=== PATIENT | female | born 1970 | race Caucasian/White ===

== ENCOUNTER 2016-11-16 21:36 | Emergency (ER) | payer OTHER ==
[~2016-11-16 21:36] MED LIST: PEPCID40 MG PO; PERCOCET 325 MG1 TA2 PO
[2016-11-16 22:31] LABS: ABSOLUTE BASOPHIL COUNT 0 /CUMM (0.0-0.2); ABSOLUTE EOSINOPHIL COUNT 0.1 /CUMM (0.0-0.7); ABSOLUTE GRANULOCYTE CT 4.2 /CUMM (1.4-6.5); ABSOLUTE MONOCYTE COUNT 0.4 /CUMM (0.10-0.60); BASOPHIL % 0.5 % (0.0-2.0); EOSINOPHIL % 1.4 % (0-5); GRANULOCYTE % 62.5 % (42.2-75.2); HEMATOCRIT 37.1 % (37-47); MEAN CORPUSCULAR HGB 32.2 PG (27.0-31.0); MEAN CORPUSCULAR HGB CONC 33.6 G/DL (33.0-37.0); MEAN PLATELET VOLUME 7.8 FL (7.4-10.4); PLATELET COUNT 225 /CUMM (130-400); RBC DISTRIBUTION WIDTH 12.7 % (11.5-14.5); RED BLOOD CELL CT 3.87 /CUMM (4.20-5.40); WHITE BLOOD CELL COUNT 6.7 /CUMM (4.8-10.8)
--- NOTE | 2016-11-16 22:32 | ED GI/GU/ABDOMINAL COMPLAINT ---
History of Present Illness General Chief Complaint: Female Urogenital Problems Stated Complaint: CRAMPING,SHARP PAIN X 4 DAYS Source: patient Exam Limitations: no limitations Vital Signs & Intake/Output Vital Signs & Intake/Output Vital Signs Date Time Temp Pulse Resp B/P Pulse O2 O2 Flow FiO2 Ox Delivery Rate 11/16 2324 100 Room Air 11/16 2143 97.0 61 20 121/85 97 Allergies Coded Allergies: NO KNOWN ALLERGIES (09/27/11) Reconcile Medications Famotidine (Pepcid) 40 MG TAB 1 TAB PO QHS . Oxycodone HCl/Acetaminophen (Percocet 5-325 MG Tablet) 5 MG-325 MG TABLET 1-2 TAB PO Q6P PRN pain OXYCODONE HCL/ACETAMINOPHEN (Percocet 5-325 MG Tablet) 325 MG/5 MG TAB 1 TAB PO Q4-6 PRN PRN PAIN Triage Note: PER PT CRAMPS ON AND OFF ALL MONTH WORSE SINCE MONDAY, ALSO MENSES ALL MONTH TOO ON AND OFF, PT ?ENDING OR SOMETHING NO DISCHARGE NO DIARRHEA Triage Nurses Notes Reviewed? yes ? N Is pt currently ? No Onset: Abrupt Duration: week(s): (4), getting worse, intermittent Timing: recent history Location: left lower quadrant Radiation: no radiation No Modifying Factors: none HPI: 46-year-old female comes into emergency room for evaluation of abdominal pain. Patient reports that the symptoms have been going on for the past 4 weeks intermittently but have gotten worse over the past 3 days. Pain is cramping and sharp. Pain is intermittent. Some increased frequency with urination. Denies any fever chills vomiting. History of lap band surgery many years ago. History of . Some associated nausea. Denies any other associated symptoms at this time. (AZAEL BROWN) Past History Travel History Traveled to [place] past 21 day No Medical History Any Pertinent Medical History? see below for history Neurological: NONE EENT: NONE Cardiovascular: NONE Respiratory: asthma Gastrointestinal: NONE Hepatic: NONE Renal: KIDNEY STONES Musculoskeletal: NONE Psychiatric: NONE Endocrine: NONE Blood Disorders: NONE Cancer(s): NONE REVIT DRAFTER/Reproductive: OVARIAN CYST Surgical History Surgical History: non-contributory Psychosocial History What is your primary language Maltese Tobacco Use: Never used Family History Hx Contributory? No (AZAEL BROWN) Review of Systems Review of Systems Constitutional: Reports: no symptoms. EENTM: Reports: no symptoms. Respiratory: Reports: no symptoms. Cardiovascular: Reports: no symptoms. GI: Reports: see HPI. Genitourinary: Reports: see HPI. Musculoskeletal: Reports: no symptoms. Skin: Reports: no symptoms. Neurological/Psychological: Reports: no symptoms. Hematologic/Endocrine: Reports: no symptoms. Immunologic/Allergic: Reports: no symptoms. All Other Systems: Reviewed and Negative (AZAEL BROWN) Physical Exam Physical Exam General Appearance: well developed/nourished, no apparent distress, alert, awake Head: atraumatic, normal appearance Eyes: Bilateral: normal appearance, EOMI. Ears, Nose, Throat, Mouth: hearing grossly normal, moist mucous membrane Neck: normal inspection, full range of motion Respiratory: normal breath sounds, no respiratory distress Cardiovascular: regular rate/rhythm Gastrointestinal: soft, tenderness (mild,), no guarding Back: normal inspection Extremities: normal range of motion Neurologic/Psych: awake, alert, oriented x 3, normal gait Skin: intact, normal color Core Measures ACS in differential dx? No Severe Sepsis Present: No Septic Shock Present: No (AZAEL BROWN) Progress Differential Diagnosis: appendicitis, biliary colic, bowel obstruction, cholecystitis, diverticulitis, gastritis, hepatitis, kidney stone, ovarian cyst, ovarian torsion, pancreatitis, PID/cervicitis, peptic ulcer, PUD/GERD, perforated viscous, SBO, threatened AB, UTI/pyelo Plan of Care: Orders Procedure Date/time Status Add-on Test (ER Only) 11/16 2236 Active HUMAN BETA HCG SCREEN 11/16 2224 Complete URINE 11/16 2205 Complete URINALYSIS 11/16 2205 Complete LIPASE 11/16 2205 Complete COMPREHENSIVE METABOLIC PANEL 11/16 2205 Complete CBC WITHOUT DIFFERENTIAL 11/16 2205 Complete Laboratory Tests 11/16/162234: Urinalysis LIGHT H, Urine Color YEL, Urine Clarity CLDY H, Urine pH 5.5, Ur Specific [place] > 1.030, Urine Protein TRACE H, Urine Ketones NEG, Urine Nitrite NEG, Urine Bilirubin NEG@ICTO, Urine Urobilinogen 0.2, Ur Leukocyte Esterase NEG, Ur Microscopic SEDIMENT EXAMINED, Urine RBC 5-10 H, Urine WBC 1-3 H, Ur Epithelial Cells MANY H, Urine Crystals 1+ CA OX H, Urine Bacteria MOD H, Urine Mucus FEW, Urine Hemoglobin LARGE H, Urine Glucose NEG, Urine Test NEGATIVE 11/16/16 2225: Anion Gap 9, Estimated GFR > 60, BUN/Creatinine Ratio 28.6 H, Glucose 86, Calcium 9.7, Total Bilirubin 0.6, AST 23, ALT 24, Alkaline Phosphatase 43, Total Protein 6.4, Albumin 3.8, Globulin 2.6, Albumin/Globulin Ratio 1.5, Lipase 177, Total Beta HCG NEGATIVE, CBC w Diff NO MAN DIFF REQ, RBC 3.87 L, MCV 96.0, MCH 32.2 H, RDW 12.7, MPV 7.8, Gran % 62.5, Lymphocytes % 29.3, Monocytes % 6.3, Eosinophils % 1.4, Basophils % 0.5, Absolute Granulocytes 4.2, Absolute Lymphocytes 2.0, Absolute Monocytes 0.4, Absolute Eosinophils 0.1, Absolute Basophils 0, PUBS MCHC 33.6 Diagnostic Imaging: Viewed by Me: CT Scan. Discussed w/RAD: CT Scan. Radiology Impression: EXAM TYPE: CAT - CT ABD & PELVIS W IV CONTRAST EXAMINATION : CT ABDOMEN AND PELVIS WITH CONTRAST CLINICAL INFORMATION: Abdominal pain. History of lap band COMPARISON: CT scan abdomen pelvis 12/01/2014 TECHNIQUE: Multidetector volumetric imaging was performed of the abdomen and pelvis before and after the IV administration of 95 mL of Optiray 320 intravenous contrast. Sagittal and coronal reformatted images were obtained on the technologist's workstation. DLP: 420.48 mGy-cm FINDINGS: LUNG BASES: The visualized lung bases are unremarkable. LIVER, GALLBLADDER, AND BILIARY TREE: The liver is normal in size, shape, and attenuation. No focal hepatic lesion or biliary ductal dilatation is present. Status post cholecystectomy. PANCREAS: Unremarkable. SPLEEN: Unremarkable. ADRENAL GLANDS: Unremarkable. KIDNEYS AND URETERS: Large parapelvic cyst in the right kidney. Nonobstructive stones in lower pole the left kidney. 7 mm stone and adjacent 4 mm stone in lower pole of the left kidney. No hydronephrosis. No ureteral calculi. BLADDER: Unremarkable. GASTROINTESTINAL TRACT: Lap band in place. Moderate to large-volume of stool throughout the colon. No acute change of the bowel. No bowel obstruction. No bowel wall thickening or edema. The appendix is not seen. There is no inflammation of the mesentery. ABDOMINAL WALL: No significant hernia is appreciated. LYMPH NODES: Normal. VASCULAR: Unremarkable. PELVIC VISCERA: Uterus is anteverted. IUD in uterus. OSSEOUS STRUCTURES: Status post right hip replacement. This does cause streak artifact through the pelvis. 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 No spondylolisthesis. IMPRESSION: 1. No acute abnormality. 2. Status post lap band. 3. Status post cholecystectomy. 4. Nonobstructive left renal calculi. Large right renal parapelvic cysts. 5. IUD in uterus. 6. Right hip replacement. DICTATED BY: JAKY CANTRELL MD DATE/TIME DICTATED:11/16/162323 TIPPLE BOSS:MARCELLUS DATE/TIME TRANSCRIBED:2323 Initial ED EKG: none Comments: 11/16/2016 11:49:29 PM Patient clinically looks well. Nontoxic-appearing. abdomen on exam. Follow-up with general surgeon at the lab and. Follow-up with REVIT DRAFTER doctor. Patient is nontoxic-appearing. Afebrile. No white count. No vaginal discharge. No concern for PID at this time. (PATRICK ADAMS,AZAEL) Departure Departure Disposition: HOME OR SELF CARE Condition: Stable Clinical Impression Primary Impression: Abdominal pain Referrals: ROSELINE HDZ MD (PCP/Family) Additional Instructions: Take Percocet as prescribed. Follow-up with your primary care doctor as well as her EAR NOSE AND THROAT SPECIALIST and general surgeon. Return to emergency room immediately if any other concerns worsening symptoms. Please go over all results of today's visit with your primary care doctor. Contact your primary care doctor to let them know you were here in the emergency room. There may be nonspecific findings which may not be related to your visit today here in the emergency room but may require further evaluation and chronic monitoring by your primary care doctor. If you had a laceration today the chance of foreign body always remains. You should follow-up with your primary care doctor for recheck in 3-5 days for a wound check. If you had an x-ray done there is a chance that a fracture could have been missed on initial read and you should follow-up with your primary care doctor for repeat x-rays if symptoms persist. If your blood pressure was elevated here in the emergency room please have rechecked by her primary care doctor within the next 48 hours by your primary care doctor. If you were prescribed a narcotic here in the emergency room or any type of controlled substances you're not allowed to drive while taking this medication or operate any type of heavy machinery. Narcotics can make you feel lightheaded dizziness nausea and can cause constipation. You may need to supervisor opening and picking a stool softener. Thank you for choosing [facility] emergency room. Please return to the emergency room immediately if you have any other concerns worsening of symptoms. Departure Forms: Customer Survey General Discharge Information Prescriptions: Current Visit Scripts Oxycodone HCl/Acetaminophen (Percocet 5-325 MG Tablet) 1-2 TAB PO Q6P PRN pain #15 TAB (AZAEL BROWN) PA/RAIL SPECIALIST Co-Sign Statement Statement: ED Attending supervision documentation- [] I saw and evaluated the patient. I have also reviewed all the pertinent lab results and diagnostic results. I agree with the findings and the plan of care as documented in the PA's/RAIL SPECIALIST's documentation. [x] I have reviewed the ED Record and agree with the PA's/RAIL SPECIALIST's documentation. [] Additions or exceptions (if any) to the PAs/RAIL SPECIALIST's note and plan are summarized below: [] (RAFAELA PAT,LUCIA Ariza)
--- NOTE | 2016-11-16 23:37 | CT SCAN REPORT ---
EXAMINATION: CT ABDOMEN AND PELVIS WITH CONTRAST CLINICAL INFORMATION: Abdominal pain. History of lap band COMPARISON: CT scan abdomen pelvis 12/01/2014 TECHNIQUE: Multidetector volumetric imaging was performed of the abdomen and pelvis before and after the IV administration of 95 mL of Optiray 320 intravenous contrast. Sagittal and coronal reformatted images were obtained on the technologist's workstation. DLP: 420.48 mGy-cm FINDINGS: LUNG BASES: The visualized lung bases are unremarkable. LIVER, GALLBLADDER, AND BILIARY TREE: The liver is normal in size, shape, and attenuation. No focal hepatic lesion or biliary ductal dilatation is present. Status post cholecystectomy. PANCREAS: Unremarkable. SPLEEN: Unremarkable. ADRENAL GLANDS: Unremarkable. KIDNEYS AND URETERS: Large parapelvic cyst in the right kidney. Nonobstructive stones in lower pole the left kidney. 7 mm stone and adjacent 4 mm stone in lower pole of the left kidney. No hydronephrosis. No ureteral calculi. BLADDER: Unremarkable. GASTROINTESTINAL TRACT: Lap band in place. Moderate to large-volume of stool throughout the colon. No acute change of the bowel. No bowel obstruction. No bowel wall thickening or edema. The appendix is not seen. There is no inflammation of the mesentery. ABDOMINAL WALL: No significant hernia is appreciated. LYMPH NODES: Normal. VASCULAR: Unremarkable. PELVIC VISCERA: Uterus is anteverted. IUD in uterus. OSSEOUS STRUCTURES: Status post right hip replacement. This does cause streak artifact through the pelvis. 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 No spondylolisthesis. IMPRESSION: 1. No acute abnormality. 2. Status post lap band. 3. Status post cholecystectomy. 4. Nonobstructive left renal calculi. Large right renal parapelvic cysts. 5. IUD in uterus. 6. Right hip replacement.
[2016-11-16] MEDS ORDERED: PERCOCET 5-3251 EACH PO (23:45)
[2016-11-16 23:57] VITALS: BP 106/68
== END 2016-11-17 00:10 ==
LOC: ERH 21:36
PROVIDERS: Physician Assistant Medical
DX: R10.32 Left lower quadrant pain (principal)
CPT/HCPCS: 74177; 81001; 81025; 96365